=== PATIENT | female | born 1960 | race Caucasian/White ===

== ENCOUNTER → 2020-05-31 | Outpatient (CLI) | payer BC | LOC: M.WC 08:00 | PROVIDERS: ATTEND Surgery | DX: T86.828 Other complications of skin graft (allograft) (autograft) (principal); E10.628 Type 1 diabetes mellitus with other skin complications; L59.8 Other specified disorders of the skin and subcutaneous tissue related to radiation; Z85.3 Personal history of malignant neoplasm of breast; Z90.710 Acquired absence of both cervix and uterus; Z90.49 Acquired absence of other specified parts of digestive tract; Z79.82 Long term (current) use of aspirin; Y84.2 Radiological procedure and radiotherapy as the cause of abnormal reaction of the patient, or of later complication, without mention of misadventure at the time of the procedure; Y83.2 Surgical operation with anastomosis, bypass or graft as the cause of abnormal reaction of the patient, or of later complication, without mention of misadventure at the time of the procedure ==

== ENCOUNTER → 2020-06-08 | Outpatient (CLI) | payer BC | LOC: M.WC 10:00 | PROVIDERS: ATTEND Surgery | DX: T86.828 Other complications of skin graft (allograft) (autograft) (principal); T81.89XD Other complications of procedures, not elsewhere classified, subsequent encounter; E10.628 Type 1 diabetes mellitus with other skin complications; L59.8 Other specified disorders of the skin and subcutaneous tissue related to radiation; Z85.3 Personal history of malignant neoplasm of breast; Z90.710 Acquired absence of both cervix and uterus; Z90.49 Acquired absence of other specified parts of digestive tract; Z79.82 Long term (current) use of aspirin; Y83.2 Surgical operation with anastomosis, bypass or graft as the cause of abnormal reaction of the patient, or of later complication, without mention of misadventure at the time of the procedure; Y83.8 Other surgical procedures as the cause of abnormal reaction of the patient, or of later complication, without mention of misadventure at the time of the procedure; Y84.2 Radiological procedure and radiotherapy as the cause of abnormal reaction of the patient, or of later complication, without mention of misadventure at the time of the procedure ==

== ENCOUNTER → 2020-06-09 | Outpatient (CLI) | payer BC | LOC: M.WC 07:27 | PROVIDERS: ATTEND Surgery | DX: T86.828 Other complications of skin graft (allograft) (autograft) (principal); L59.9 Disorder of the skin and subcutaneous tissue related to radiation, unspecified; E10.628 Type 1 diabetes mellitus with other skin complications; E07.89 Other specified disorders of thyroid; Z85.3 Personal history of malignant neoplasm of breast; Z90.710 Acquired absence of both cervix and uterus; Z90.49 Acquired absence of other specified parts of digestive tract; Z79.4 Long term (current) use of insulin; Z79.82 Long term (current) use of aspirin; Y84.2 Radiological procedure and radiotherapy as the cause of abnormal reaction of the patient, or of later complication, without mention of misadventure at the time of the procedure; Y83.2 Surgical operation with anastomosis, bypass or graft as the cause of abnormal reaction of the patient, or of later complication, without mention of misadventure at the time of the procedure ==

== ENCOUNTER → 2020-06-10 | Outpatient (CLI) | payer BC | LOC: M.WC 07:33 | PROVIDERS: ATTEND Family Medicine | DX: L59.8 Other specified disorders of the skin and subcutaneous tissue related to radiation (principal); T86.828 Other complications of skin graft (allograft) (autograft); M87.88 Other osteonecrosis, other site; E10.628 Type 1 diabetes mellitus with other skin complications; E07.89 Other specified disorders of thyroid; Z85.3 Personal history of malignant neoplasm of breast; Z90.710 Acquired absence of both cervix and uterus; Z90.49 Acquired absence of other specified parts of digestive tract; Y83.2 Surgical operation with anastomosis, bypass or graft as the cause of abnormal reaction of the patient, or of later complication, without mention of misadventure at the time of the procedure; Y84.2 Radiological procedure and radiotherapy as the cause of abnormal reaction of the patient, or of later complication, without mention of misadventure at the time of the procedure ==

== ENCOUNTER → 2020-06-14 | Outpatient (CLI) | payer BC | LOC: M.WC 07:27 | PROVIDERS: ATTEND Surgery | DX: L59.8 Other specified disorders of the skin and subcutaneous tissue related to radiation (principal); T86.828 Other complications of skin graft (allograft) (autograft); M87.88 Other osteonecrosis, other site; E10.628 Type 1 diabetes mellitus with other skin complications; E07.89 Other specified disorders of thyroid; Z85.3 Personal history of malignant neoplasm of breast; Z90.710 Acquired absence of both cervix and uterus; Z90.49 Acquired absence of other specified parts of digestive tract; Y83.2 Surgical operation with anastomosis, bypass or graft as the cause of abnormal reaction of the patient, or of later complication, without mention of misadventure at the time of the procedure; Y84.2 Radiological procedure and radiotherapy as the cause of abnormal reaction of the patient, or of later complication, without mention of misadventure at the time of the procedure ==

== ENCOUNTER → 2020-06-15 | Outpatient (CLI) | payer BC | LOC: M.WC 07:33 | PROVIDERS: ATTEND Emergency Medicine Undersea and Hyperbaric Medicine | DX: L59.8 Other specified disorders of the skin and subcutaneous tissue related to radiation (principal); E10.628 Type 1 diabetes mellitus with other skin complications; T86.828 Other complications of skin graft (allograft) (autograft); Z85.3 Personal history of malignant neoplasm of breast; Z90.11 Acquired absence of right breast and nipple; Y84.2 Radiological procedure and radiotherapy as the cause of abnormal reaction of the patient, or of later complication, without mention of misadventure at the time of the procedure; Y83.2 Surgical operation with anastomosis, bypass or graft as the cause of abnormal reaction of the patient, or of later complication, without mention of misadventure at the time of the procedure ==

== ENCOUNTER → 2020-06-16 | Outpatient (CLI) | payer BC | LOC: M.WC 07:42 | PROVIDERS: ATTEND Surgery | DX: L59.8 Other specified disorders of the skin and subcutaneous tissue related to radiation (principal); T86.828 Other complications of skin graft (allograft) (autograft); M87.88 Other osteonecrosis, other site; E10.628 Type 1 diabetes mellitus with other skin complications; E07.89 Other specified disorders of thyroid; Z85.3 Personal history of malignant neoplasm of breast; Z90.710 Acquired absence of both cervix and uterus; Z90.49 Acquired absence of other specified parts of digestive tract; Y83.2 Surgical operation with anastomosis, bypass or graft as the cause of abnormal reaction of the patient, or of later complication, without mention of misadventure at the time of the procedure; Y84.2 Radiological procedure and radiotherapy as the cause of abnormal reaction of the patient, or of later complication, without mention of misadventure at the time of the procedure ==

== ENCOUNTER → 2020-06-17 | Outpatient (CLI) | payer BC | LOC: M.WC 07:28 | PROVIDERS: ATTEND Family Medicine | DX: L59.8 Other specified disorders of the skin and subcutaneous tissue related to radiation (principal); T86.828 Other complications of skin graft (allograft) (autograft); M87.88 Other osteonecrosis, other site; E10.628 Type 1 diabetes mellitus with other skin complications; E07.89 Other specified disorders of thyroid; Z85.3 Personal history of malignant neoplasm of breast; Z90.710 Acquired absence of both cervix and uterus; Z90.49 Acquired absence of other specified parts of digestive tract; Y83.2 Surgical operation with anastomosis, bypass or graft as the cause of abnormal reaction of the patient, or of later complication, without mention of misadventure at the time of the procedure; Y84.2 Radiological procedure and radiotherapy as the cause of abnormal reaction of the patient, or of later complication, without mention of misadventure at the time of the procedure ==

== ENCOUNTER → 2020-06-18 | Outpatient (CLI) | payer BC | LOC: M.WC 07:35 | PROVIDERS: ATTEND Family Medicine | DX: L59.8 Other specified disorders of the skin and subcutaneous tissue related to radiation (principal); T86.828 Other complications of skin graft (allograft) (autograft); M87.88 Other osteonecrosis, other site; E10.628 Type 1 diabetes mellitus with other skin complications; E07.89 Other specified disorders of thyroid; Z85.3 Personal history of malignant neoplasm of breast; Z90.710 Acquired absence of both cervix and uterus; Z90.49 Acquired absence of other specified parts of digestive tract; Y83.2 Surgical operation with anastomosis, bypass or graft as the cause of abnormal reaction of the patient, or of later complication, without mention of misadventure at the time of the procedure; Y84.2 Radiological procedure and radiotherapy as the cause of abnormal reaction of the patient, or of later complication, without mention of misadventure at the time of the procedure ==

== ENCOUNTER → 2020-06-21 | Outpatient (CLI) | payer BC | LOC: M.WC 07:34 | PROVIDERS: ATTEND Surgery | DX: L59.8 Other specified disorders of the skin and subcutaneous tissue related to radiation (principal); E10.628 Type 1 diabetes mellitus with other skin complications; T86.828 Other complications of skin graft (allograft) (autograft); T81.89XD Other complications of procedures, not elsewhere classified, subsequent encounter; Z85.3 Personal history of malignant neoplasm of breast; Y84.2 Radiological procedure and radiotherapy as the cause of abnormal reaction of the patient, or of later complication, without mention of misadventure at the time of the procedure; Y83.2 Surgical operation with anastomosis, bypass or graft as the cause of abnormal reaction of the patient, or of later complication, without mention of misadventure at the time of the procedure; Y83.8 Other surgical procedures as the cause of abnormal reaction of the patient, or of later complication, without mention of misadventure at the time of the procedure ==

== ENCOUNTER → 2020-06-22 | Outpatient (CLI) | payer BC | LOC: M.WC 07:30 | PROVIDERS: ATTEND Emergency Medicine Undersea and Hyperbaric Medicine | DX: L59.8 Other specified disorders of the skin and subcutaneous tissue related to radiation (principal); T86.828 Other complications of skin graft (allograft) (autograft); M87.88 Other osteonecrosis, other site; E10.628 Type 1 diabetes mellitus with other skin complications; E07.89 Other specified disorders of thyroid; Z85.3 Personal history of malignant neoplasm of breast; Z90.710 Acquired absence of both cervix and uterus; Z90.49 Acquired absence of other specified parts of digestive tract; Y83.2 Surgical operation with anastomosis, bypass or graft as the cause of abnormal reaction of the patient, or of later complication, without mention of misadventure at the time of the procedure; Y84.2 Radiological procedure and radiotherapy as the cause of abnormal reaction of the patient, or of later complication, without mention of misadventure at the time of the procedure ==

== ENCOUNTER → 2020-06-23 | Outpatient (CLI) | payer BC | LOC: M.WC 07:32 | PROVIDERS: ATTEND Surgery | DX: L59.8 Other specified disorders of the skin and subcutaneous tissue related to radiation (principal); T86.828 Other complications of skin graft (allograft) (autograft); M87.88 Other osteonecrosis, other site; E10.628 Type 1 diabetes mellitus with other skin complications; E07.89 Other specified disorders of thyroid; Z85.3 Personal history of malignant neoplasm of breast; Z90.710 Acquired absence of both cervix and uterus; Z90.49 Acquired absence of other specified parts of digestive tract; Y83.2 Surgical operation with anastomosis, bypass or graft as the cause of abnormal reaction of the patient, or of later complication, without mention of misadventure at the time of the procedure; Y84.2 Radiological procedure and radiotherapy as the cause of abnormal reaction of the patient, or of later complication, without mention of misadventure at the time of the procedure ==

== ENCOUNTER → 2020-06-24 | Outpatient (CLI) | payer BC | LOC: M.WC 07:31 | PROVIDERS: ATTEND Family Medicine | DX: L59.8 Other specified disorders of the skin and subcutaneous tissue related to radiation (principal); T86.828 Other complications of skin graft (allograft) (autograft); M87.88 Other osteonecrosis, other site; E10.628 Type 1 diabetes mellitus with other skin complications; E07.89 Other specified disorders of thyroid; Z85.3 Personal history of malignant neoplasm of breast; Z90.710 Acquired absence of both cervix and uterus; Z90.49 Acquired absence of other specified parts of digestive tract; Y83.2 Surgical operation with anastomosis, bypass or graft as the cause of abnormal reaction of the patient, or of later complication, without mention of misadventure at the time of the procedure; Y84.2 Radiological procedure and radiotherapy as the cause of abnormal reaction of the patient, or of later complication, without mention of misadventure at the time of the procedure ==

== ENCOUNTER → 2020-06-25 | Outpatient (CLI) | payer BC | LOC: M.WC 07:32 | PROVIDERS: ATTEND Family Medicine | DX: L59.8 Other specified disorders of the skin and subcutaneous tissue related to radiation (principal); T86.828 Other complications of skin graft (allograft) (autograft); M87.88 Other osteonecrosis, other site; E10.628 Type 1 diabetes mellitus with other skin complications; E07.89 Other specified disorders of thyroid; Z85.3 Personal history of malignant neoplasm of breast; Z90.710 Acquired absence of both cervix and uterus; Z90.49 Acquired absence of other specified parts of digestive tract; Y83.2 Surgical operation with anastomosis, bypass or graft as the cause of abnormal reaction of the patient, or of later complication, without mention of misadventure at the time of the procedure; Y84.2 Radiological procedure and radiotherapy as the cause of abnormal reaction of the patient, or of later complication, without mention of misadventure at the time of the procedure ==

== ENCOUNTER → 2020-06-28 | Outpatient (CLI) | payer BC | LOC: M.WC 08:00 | PROVIDERS: ATTEND Surgery | DX: L59.8 Other specified disorders of the skin and subcutaneous tissue related to radiation (principal); T86.828 Other complications of skin graft (allograft) (autograft); M87.88 Other osteonecrosis, other site; E10.628 Type 1 diabetes mellitus with other skin complications; E07.89 Other specified disorders of thyroid; Z85.3 Personal history of malignant neoplasm of breast; Z90.710 Acquired absence of both cervix and uterus; Z90.49 Acquired absence of other specified parts of digestive tract; Y83.2 Surgical operation with anastomosis, bypass or graft as the cause of abnormal reaction of the patient, or of later complication, without mention of misadventure at the time of the procedure; Y84.2 Radiological procedure and radiotherapy as the cause of abnormal reaction of the patient, or of later complication, without mention of misadventure at the time of the procedure ==

== ENCOUNTER → 2020-06-29 | Outpatient (CLI) | payer BC | LOC: M.WC 07:39 | PROVIDERS: ATTEND Emergency Medicine Undersea and Hyperbaric Medicine | DX: L59.8 Other specified disorders of the skin and subcutaneous tissue related to radiation (principal); T86.828 Other complications of skin graft (allograft) (autograft); M87.88 Other osteonecrosis, other site; E10.628 Type 1 diabetes mellitus with other skin complications; E07.89 Other specified disorders of thyroid; Z85.3 Personal history of malignant neoplasm of breast; Z90.710 Acquired absence of both cervix and uterus; Z90.49 Acquired absence of other specified parts of digestive tract; Y83.2 Surgical operation with anastomosis, bypass or graft as the cause of abnormal reaction of the patient, or of later complication, without mention of misadventure at the time of the procedure; Y84.2 Radiological procedure and radiotherapy as the cause of abnormal reaction of the patient, or of later complication, without mention of misadventure at the time of the procedure ==

== ENCOUNTER → 2020-06-30 | Outpatient (CLI) | payer BC | LOC: M.WC 07:31 | PROVIDERS: ATTEND Emergency Medicine Undersea and Hyperbaric Medicine | DX: L59.8 Other specified disorders of the skin and subcutaneous tissue related to radiation (principal); T86.828 Other complications of skin graft (allograft) (autograft); M87.88 Other osteonecrosis, other site; E10.628 Type 1 diabetes mellitus with other skin complications; E07.89 Other specified disorders of thyroid; Z85.3 Personal history of malignant neoplasm of breast; Z90.710 Acquired absence of both cervix and uterus; Z90.49 Acquired absence of other specified parts of digestive tract; Y83.2 Surgical operation with anastomosis, bypass or graft as the cause of abnormal reaction of the patient, or of later complication, without mention of misadventure at the time of the procedure ==

== ENCOUNTER → 2020-07-01 | Outpatient (CLI) | payer BC | LOC: M.WC 07:17 | PROVIDERS: ATTEND Family Medicine | DX: L59.8 Other specified disorders of the skin and subcutaneous tissue related to radiation (principal); T86.828 Other complications of skin graft (allograft) (autograft); M87.88 Other osteonecrosis, other site; E10.628 Type 1 diabetes mellitus with other skin complications; E07.89 Other specified disorders of thyroid; Z85.3 Personal history of malignant neoplasm of breast; Z90.710 Acquired absence of both cervix and uterus; Z90.49 Acquired absence of other specified parts of digestive tract; Y83.2 Surgical operation with anastomosis, bypass or graft as the cause of abnormal reaction of the patient, or of later complication, without mention of misadventure at the time of the procedure; Y84.2 Radiological procedure and radiotherapy as the cause of abnormal reaction of the patient, or of later complication, without mention of misadventure at the time of the procedure ==

== ENCOUNTER → 2020-07-02 | Outpatient (CLI) | payer BC | LOC: M.WC 07:33 | PROVIDERS: ATTEND Family Medicine | DX: L59.8 Other specified disorders of the skin and subcutaneous tissue related to radiation (principal); E10.628 Type 1 diabetes mellitus with other skin complications; T86.828 Other complications of skin graft (allograft) (autograft); Z85.3 Personal history of malignant neoplasm of breast; Y84.2 Radiological procedure and radiotherapy as the cause of abnormal reaction of the patient, or of later complication, without mention of misadventure at the time of the procedure; Y83.2 Surgical operation with anastomosis, bypass or graft as the cause of abnormal reaction of the patient, or of later complication, without mention of misadventure at the time of the procedure ==

== ENCOUNTER → 2020-07-05 | Outpatient (CLI) | payer BC | LOC: M.WC 07:22 | PROVIDERS: ATTEND Surgery | DX: L59.8 Other specified disorders of the skin and subcutaneous tissue related to radiation (principal); E10.628 Type 1 diabetes mellitus with other skin complications; T86.828 Other complications of skin graft (allograft) (autograft); E07.89 Other specified disorders of thyroid; M87.88 Other osteonecrosis, other site; Z85.3 Personal history of malignant neoplasm of breast; Y84.2 Radiological procedure and radiotherapy as the cause of abnormal reaction of the patient, or of later complication, without mention of misadventure at the time of the procedure; Y83.2 Surgical operation with anastomosis, bypass or graft as the cause of abnormal reaction of the patient, or of later complication, without mention of misadventure at the time of the procedure ==

== ENCOUNTER → 2020-07-06 | Outpatient (CLI) | payer BC | LOC: M.WC 07:33 | PROVIDERS: ATTEND Emergency Medicine Undersea and Hyperbaric Medicine | DX: L59.8 Other specified disorders of the skin and subcutaneous tissue related to radiation (principal); E10.628 Type 1 diabetes mellitus with other skin complications; T86.828 Other complications of skin graft (allograft) (autograft); E07.89 Other specified disorders of thyroid; M87.88 Other osteonecrosis, other site; Z85.3 Personal history of malignant neoplasm of breast; Y83.2 Surgical operation with anastomosis, bypass or graft as the cause of abnormal reaction of the patient, or of later complication, without mention of misadventure at the time of the procedure; Y84.2 Radiological procedure and radiotherapy as the cause of abnormal reaction of the patient, or of later complication, without mention of misadventure at the time of the procedure ==

== ENCOUNTER → 2020-07-07 | Outpatient (CLI) | payer BC | LOC: M.WC 07:35 | PROVIDERS: ATTEND Surgery | DX: L59.8 Other specified disorders of the skin and subcutaneous tissue related to radiation (principal); E10.628 Type 1 diabetes mellitus with other skin complications; T86.828 Other complications of skin graft (allograft) (autograft); E07.89 Other specified disorders of thyroid; M87.88 Other osteonecrosis, other site; Z85.3 Personal history of malignant neoplasm of breast; Y83.2 Surgical operation with anastomosis, bypass or graft as the cause of abnormal reaction of the patient, or of later complication, without mention of misadventure at the time of the procedure; Y84.2 Radiological procedure and radiotherapy as the cause of abnormal reaction of the patient, or of later complication, without mention of misadventure at the time of the procedure ==

== ENCOUNTER → 2020-07-08 | Outpatient (CLI) | payer BC | LOC: M.WC 07:45 | PROVIDERS: ATTEND Family Medicine | DX: L59.8 Other specified disorders of the skin and subcutaneous tissue related to radiation (principal); E10.628 Type 1 diabetes mellitus with other skin complications; T86.828 Other complications of skin graft (allograft) (autograft); E07.89 Other specified disorders of thyroid; M87.88 Other osteonecrosis, other site; Z85.3 Personal history of malignant neoplasm of breast; Y83.2 Surgical operation with anastomosis, bypass or graft as the cause of abnormal reaction of the patient, or of later complication, without mention of misadventure at the time of the procedure; Y84.2 Radiological procedure and radiotherapy as the cause of abnormal reaction of the patient, or of later complication, without mention of misadventure at the time of the procedure ==

== ENCOUNTER → 2020-07-12 | Outpatient (CLI) | payer BC | LOC: M.WC 07:32 | PROVIDERS: ATTEND Surgery | DX: L59.8 Other specified disorders of the skin and subcutaneous tissue related to radiation (principal); E10.628 Type 1 diabetes mellitus with other skin complications; T86.828 Other complications of skin graft (allograft) (autograft); E07.89 Other specified disorders of thyroid; M87.88 Other osteonecrosis, other site; Z85.3 Personal history of malignant neoplasm of breast; Y83.2 Surgical operation with anastomosis, bypass or graft as the cause of abnormal reaction of the patient, or of later complication, without mention of misadventure at the time of the procedure; Y84.2 Radiological procedure and radiotherapy as the cause of abnormal reaction of the patient, or of later complication, without mention of misadventure at the time of the procedure ==

== ENCOUNTER → 2020-07-13 | Outpatient (CLI) | payer BC | LOC: M.WC 07:32 | PROVIDERS: ATTEND Emergency Medicine Undersea and Hyperbaric Medicine | DX: L59.8 Other specified disorders of the skin and subcutaneous tissue related to radiation (principal); E10.628 Type 1 diabetes mellitus with other skin complications; T86.828 Other complications of skin graft (allograft) (autograft); E07.89 Other specified disorders of thyroid; M87.88 Other osteonecrosis, other site; Z85.3 Personal history of malignant neoplasm of breast; Y83.2 Surgical operation with anastomosis, bypass or graft as the cause of abnormal reaction of the patient, or of later complication, without mention of misadventure at the time of the procedure; Y84.2 Radiological procedure and radiotherapy as the cause of abnormal reaction of the patient, or of later complication, without mention of misadventure at the time of the procedure ==

== ENCOUNTER → 2020-07-14 | Outpatient (CLI) | payer BC | LOC: M.WC 07:36 | PROVIDERS: ATTEND Surgery | DX: L59.8 Other specified disorders of the skin and subcutaneous tissue related to radiation (principal); M87.88 Other osteonecrosis, other site; E10.628 Type 1 diabetes mellitus with other skin complications; T86.828 Other complications of skin graft (allograft) (autograft); Z85.3 Personal history of malignant neoplasm of breast; Z90.11 Acquired absence of right breast and nipple; Y84.2 Radiological procedure and radiotherapy as the cause of abnormal reaction of the patient, or of later complication, without mention of misadventure at the time of the procedure; Y83.2 Surgical operation with anastomosis, bypass or graft as the cause of abnormal reaction of the patient, or of later complication, without mention of misadventure at the time of the procedure ==

== ENCOUNTER → 2020-07-15 | Outpatient (CLI) | payer BC | LOC: M.WC 07:25 | PROVIDERS: ATTEND Family Medicine | DX: L59.8 Other specified disorders of the skin and subcutaneous tissue related to radiation (principal); M87.88 Other osteonecrosis, other site; E10.628 Type 1 diabetes mellitus with other skin complications; T86.828 Other complications of skin graft (allograft) (autograft); Z85.3 Personal history of malignant neoplasm of breast; Z90.11 Acquired absence of right breast and nipple; Y84.2 Radiological procedure and radiotherapy as the cause of abnormal reaction of the patient, or of later complication, without mention of misadventure at the time of the procedure; Y83.2 Surgical operation with anastomosis, bypass or graft as the cause of abnormal reaction of the patient, or of later complication, without mention of misadventure at the time of the procedure ==

== ENCOUNTER → 2020-07-16 | Outpatient (CLI) | payer BC | LOC: M.WC 07:33 | PROVIDERS: ATTEND Family Medicine | DX: L59.8 Other specified disorders of the skin and subcutaneous tissue related to radiation (principal); M87.88 Other osteonecrosis, other site; T86.828 Other complications of skin graft (allograft) (autograft); E10.628 Type 1 diabetes mellitus with other skin complications; E07.89 Other specified disorders of thyroid; Z85.3 Personal history of malignant neoplasm of breast; Z90.11 Acquired absence of right breast and nipple; Y83.2 Surgical operation with anastomosis, bypass or graft as the cause of abnormal reaction of the patient, or of later complication, without mention of misadventure at the time of the procedure; Y84.2 Radiological procedure and radiotherapy as the cause of abnormal reaction of the patient, or of later complication, without mention of misadventure at the time of the procedure ==

== ENCOUNTER → 2020-07-19 | Outpatient (CLI) | payer BC | LOC: M.WC 07:36 | PROVIDERS: ATTEND Internal Medicine | DX: L59.8 Other specified disorders of the skin and subcutaneous tissue related to radiation (principal); M87.88 Other osteonecrosis, other site; T86.828 Other complications of skin graft (allograft) (autograft); E10.628 Type 1 diabetes mellitus with other skin complications; E07.89 Other specified disorders of thyroid; Z85.3 Personal history of malignant neoplasm of breast; Z90.11 Acquired absence of right breast and nipple; Y83.2 Surgical operation with anastomosis, bypass or graft as the cause of abnormal reaction of the patient, or of later complication, without mention of misadventure at the time of the procedure; Y84.2 Radiological procedure and radiotherapy as the cause of abnormal reaction of the patient, or of later complication, without mention of misadventure at the time of the procedure ==

== ENCOUNTER → 2020-07-20 | Outpatient (CLI) | payer BC | LOC: M.WC 07:49 | PROVIDERS: ATTEND Emergency Medicine Undersea and Hyperbaric Medicine | DX: L59.8 Other specified disorders of the skin and subcutaneous tissue related to radiation (principal); M87.88 Other osteonecrosis, other site; T86.828 Other complications of skin graft (allograft) (autograft); E10.628 Type 1 diabetes mellitus with other skin complications; E07.89 Other specified disorders of thyroid; Z85.3 Personal history of malignant neoplasm of breast; Z90.11 Acquired absence of right breast and nipple; Y83.2 Surgical operation with anastomosis, bypass or graft as the cause of abnormal reaction of the patient, or of later complication, without mention of misadventure at the time of the procedure; Y84.2 Radiological procedure and radiotherapy as the cause of abnormal reaction of the patient, or of later complication, without mention of misadventure at the time of the procedure ==

== ENCOUNTER → 2020-07-21 | Outpatient (CLI) | payer BC | LOC: M.WC 07:38 | PROVIDERS: ATTEND Surgery | DX: L59.8 Other specified disorders of the skin and subcutaneous tissue related to radiation (principal); M87.88 Other osteonecrosis, other site; T86.828 Other complications of skin graft (allograft) (autograft); E10.628 Type 1 diabetes mellitus with other skin complications; E07.89 Other specified disorders of thyroid; Z85.3 Personal history of malignant neoplasm of breast; Z90.11 Acquired absence of right breast and nipple; Y83.2 Surgical operation with anastomosis, bypass or graft as the cause of abnormal reaction of the patient, or of later complication, without mention of misadventure at the time of the procedure; Y84.2 Radiological procedure and radiotherapy as the cause of abnormal reaction of the patient, or of later complication, without mention of misadventure at the time of the procedure ==

== ENCOUNTER → 2020-07-23 | Outpatient (CLI) | payer BC | LOC: M.WC 07:20 | PROVIDERS: ATTEND Family Medicine | DX: L59.8 Other specified disorders of the skin and subcutaneous tissue related to radiation (principal); M87.88 Other osteonecrosis, other site; E10.628 Type 1 diabetes mellitus with other skin complications; T86.828 Other complications of skin graft (allograft) (autograft); Z85.3 Personal history of malignant neoplasm of breast; Z90.11 Acquired absence of right breast and nipple; Y83.2 Surgical operation with anastomosis, bypass or graft as the cause of abnormal reaction of the patient, or of later complication, without mention of misadventure at the time of the procedure; Y84.2 Radiological procedure and radiotherapy as the cause of abnormal reaction of the patient, or of later complication, without mention of misadventure at the time of the procedure ==

== ENCOUNTER → 2020-07-26 | Outpatient (CLI) | payer BC | LOC: M.WC 07:21 | PROVIDERS: ATTEND Surgery | DX: L59.8 Other specified disorders of the skin and subcutaneous tissue related to radiation (principal); E10.628 Type 1 diabetes mellitus with other skin complications; T86.828 Other complications of skin graft (allograft) (autograft); T81.89XD Other complications of procedures, not elsewhere classified, subsequent encounter; E07.89 Other specified disorders of thyroid; M87.88 Other osteonecrosis, other site; Z85.3 Personal history of malignant neoplasm of breast; Y83.8 Other surgical procedures as the cause of abnormal reaction of the patient, or of later complication, without mention of misadventure at the time of the procedure; Y83.2 Surgical operation with anastomosis, bypass or graft as the cause of abnormal reaction of the patient, or of later complication, without mention of misadventure at the time of the procedure; Y84.2 Radiological procedure and radiotherapy as the cause of abnormal reaction of the patient, or of later complication, without mention of misadventure at the time of the procedure ==

== ENCOUNTER → 2020-08-02 | Outpatient (CLI) | payer BC | LOC: M.WC 09:59 | PROVIDERS: ATTEND Surgery | DX: T86.828 Other complications of skin graft (allograft) (autograft) (principal); T81.89XD Other complications of procedures, not elsewhere classified, subsequent encounter; L59.8 Other specified disorders of the skin and subcutaneous tissue related to radiation; E10.628 Type 1 diabetes mellitus with other skin complications; E07.89 Other specified disorders of thyroid; M87.88 Other osteonecrosis, other site; Z85.3 Personal history of malignant neoplasm of breast; Y83.8 Other surgical procedures as the cause of abnormal reaction of the patient, or of later complication, without mention of misadventure at the time of the procedure; Y83.2 Surgical operation with anastomosis, bypass or graft as the cause of abnormal reaction of the patient, or of later complication, without mention of misadventure at the time of the procedure; Y84.2 Radiological procedure and radiotherapy as the cause of abnormal reaction of the patient, or of later complication, without mention of misadventure at the time of the procedure ==

== ENCOUNTER → 2020-08-09 | Outpatient (CLI) | payer BC | LOC: M.WC 09:12 | PROVIDERS: ATTEND Surgery | DX: T86.828 Other complications of skin graft (allograft) (autograft) (principal); T81.89XD Other complications of procedures, not elsewhere classified, subsequent encounter; L59.8 Other specified disorders of the skin and subcutaneous tissue related to radiation; E10.628 Type 1 diabetes mellitus with other skin complications; E07.89 Other specified disorders of thyroid; M87.88 Other osteonecrosis, other site; Z85.3 Personal history of malignant neoplasm of breast; Y83.8 Other surgical procedures as the cause of abnormal reaction of the patient, or of later complication, without mention of misadventure at the time of the procedure; Y84.2 Radiological procedure and radiotherapy as the cause of abnormal reaction of the patient, or of later complication, without mention of misadventure at the time of the procedure; Y83.2 Surgical operation with anastomosis, bypass or graft as the cause of abnormal reaction of the patient, or of later complication, without mention of misadventure at the time of the procedure ==

== ENCOUNTER → 2020-08-10 | Outpatient (CLI) | payer BC | LOC: M.WC 07:37 | PROVIDERS: ATTEND Emergency Medicine Undersea and Hyperbaric Medicine | DX: L59.8 Other specified disorders of the skin and subcutaneous tissue related to radiation (principal); T86.828 Other complications of skin graft (allograft) (autograft); M87.88 Other osteonecrosis, other site; E10.628 Type 1 diabetes mellitus with other skin complications; E07.89 Other specified disorders of thyroid; Z85.3 Personal history of malignant neoplasm of breast; Y83.2 Surgical operation with anastomosis, bypass or graft as the cause of abnormal reaction of the patient, or of later complication, without mention of misadventure at the time of the procedure; Y84.2 Radiological procedure and radiotherapy as the cause of abnormal reaction of the patient, or of later complication, without mention of misadventure at the time of the procedure ==

== ENCOUNTER → 2020-08-11 | Outpatient (CLI) | payer BC | LOC: M.WC 07:37 | PROVIDERS: ATTEND Surgery | DX: T86.828 Other complications of skin graft (allograft) (autograft) (principal); L59.8 Other specified disorders of the skin and subcutaneous tissue related to radiation; E10.628 Type 1 diabetes mellitus with other skin complications; E07.89 Other specified disorders of thyroid; M87.88 Other osteonecrosis, other site; Z85.3 Personal history of malignant neoplasm of breast; Y84.2 Radiological procedure and radiotherapy as the cause of abnormal reaction of the patient, or of later complication, without mention of misadventure at the time of the procedure; Y83.2 Surgical operation with anastomosis, bypass or graft as the cause of abnormal reaction of the patient, or of later complication, without mention of misadventure at the time of the procedure ==

== ENCOUNTER → 2020-08-12 | Outpatient (CLI) | payer BC | LOC: M.WC 07:25 | PROVIDERS: ATTEND Family Medicine | DX: L59.8 Other specified disorders of the skin and subcutaneous tissue related to radiation (principal); T86.828 Other complications of skin graft (allograft) (autograft); E10.628 Type 1 diabetes mellitus with other skin complications; E07.89 Other specified disorders of thyroid; M87.88 Other osteonecrosis, other site; Z85.3 Personal history of malignant neoplasm of breast; Y83.2 Surgical operation with anastomosis, bypass or graft as the cause of abnormal reaction of the patient, or of later complication, without mention of misadventure at the time of the procedure; Y84.2 Radiological procedure and radiotherapy as the cause of abnormal reaction of the patient, or of later complication, without mention of misadventure at the time of the procedure ==

== ENCOUNTER → 2020-08-13 | Outpatient (CLI) | payer BC | LOC: M.WC 07:39 | PROVIDERS: ATTEND Family Medicine | DX: L59.8 Other specified disorders of the skin and subcutaneous tissue related to radiation (principal); M87.88 Other osteonecrosis, other site; E10.628 Type 1 diabetes mellitus with other skin complications; T86.828 Other complications of skin graft (allograft) (autograft); Z85.3 Personal history of malignant neoplasm of breast; Z90.11 Acquired absence of right breast and nipple; Y83.2 Surgical operation with anastomosis, bypass or graft as the cause of abnormal reaction of the patient, or of later complication, without mention of misadventure at the time of the procedure; Y84.2 Radiological procedure and radiotherapy as the cause of abnormal reaction of the patient, or of later complication, without mention of misadventure at the time of the procedure ==

== ENCOUNTER → 2020-08-16 | Outpatient (CLI) | payer BC | LOC: M.WC 07:34 | PROVIDERS: ATTEND Surgery | DX: L59.8 Other specified disorders of the skin and subcutaneous tissue related to radiation (principal); M87.88 Other osteonecrosis, other site; E10.628 Type 1 diabetes mellitus with other skin complications; T86.828 Other complications of skin graft (allograft) (autograft); Z85.3 Personal history of malignant neoplasm of breast; Z90.11 Acquired absence of right breast and nipple; Y83.2 Surgical operation with anastomosis, bypass or graft as the cause of abnormal reaction of the patient, or of later complication, without mention of misadventure at the time of the procedure; Y84.2 Radiological procedure and radiotherapy as the cause of abnormal reaction of the patient, or of later complication, without mention of misadventure at the time of the procedure ==

== ENCOUNTER → 2020-08-17 | Outpatient (CLI) | payer BC | LOC: M.WC 07:36 | PROVIDERS: ATTEND Emergency Medicine Undersea and Hyperbaric Medicine | DX: L59.8 Other specified disorders of the skin and subcutaneous tissue related to radiation (principal); M87.88 Other osteonecrosis, other site; E10.628 Type 1 diabetes mellitus with other skin complications; T86.828 Other complications of skin graft (allograft) (autograft); Z85.3 Personal history of malignant neoplasm of breast; Z90.11 Acquired absence of right breast and nipple; Y83.2 Surgical operation with anastomosis, bypass or graft as the cause of abnormal reaction of the patient, or of later complication, without mention of misadventure at the time of the procedure; Y84.2 Radiological procedure and radiotherapy as the cause of abnormal reaction of the patient, or of later complication, without mention of misadventure at the time of the procedure ==

== ENCOUNTER → 2020-08-18 | Outpatient (CLI) | payer BC | LOC: M.WC 07:54 | PROVIDERS: ATTEND Surgery | DX: L59.8 Other specified disorders of the skin and subcutaneous tissue related to radiation (principal); M87.88 Other osteonecrosis, other site; E10.628 Type 1 diabetes mellitus with other skin complications; T86.828 Other complications of skin graft (allograft) (autograft); E07.89 Other specified disorders of thyroid; Z79.4 Long term (current) use of insulin; Z79.82 Long term (current) use of aspirin; Z90.11 Acquired absence of right breast and nipple; Z85.3 Personal history of malignant neoplasm of breast; Y84.2 Radiological procedure and radiotherapy as the cause of abnormal reaction of the patient, or of later complication, without mention of misadventure at the time of the procedure; Y83.2 Surgical operation with anastomosis, bypass or graft as the cause of abnormal reaction of the patient, or of later complication, without mention of misadventure at the time of the procedure ==

== ENCOUNTER → 2020-08-19 | Outpatient (CLI) | payer BC | LOC: M.WC 07:35 | PROVIDERS: ATTEND Family Medicine | DX: L59.8 Other specified disorders of the skin and subcutaneous tissue related to radiation (principal); M87.88 Other osteonecrosis, other site; E10.628 Type 1 diabetes mellitus with other skin complications; T86.828 Other complications of skin graft (allograft) (autograft); E07.89 Other specified disorders of thyroid; Z79.4 Long term (current) use of insulin; Z79.82 Long term (current) use of aspirin; Z90.11 Acquired absence of right breast and nipple; Z85.3 Personal history of malignant neoplasm of breast; Y84.2 Radiological procedure and radiotherapy as the cause of abnormal reaction of the patient, or of later complication, without mention of misadventure at the time of the procedure; Y83.2 Surgical operation with anastomosis, bypass or graft as the cause of abnormal reaction of the patient, or of later complication, without mention of misadventure at the time of the procedure ==

== ENCOUNTER → 2020-08-20 | Outpatient (CLI) | payer BC | LOC: M.WC 07:35 | PROVIDERS: ATTEND Family Medicine | DX: L59.8 Other specified disorders of the skin and subcutaneous tissue related to radiation (principal); M87.88 Other osteonecrosis, other site; E10.628 Type 1 diabetes mellitus with other skin complications; T86.828 Other complications of skin graft (allograft) (autograft); Z90.11 Acquired absence of right breast and nipple; Y83.2 Surgical operation with anastomosis, bypass or graft as the cause of abnormal reaction of the patient, or of later complication, without mention of misadventure at the time of the procedure; Y84.2 Radiological procedure and radiotherapy as the cause of abnormal reaction of the patient, or of later complication, without mention of misadventure at the time of the procedure ==

== ENCOUNTER → 2020-08-23 | Outpatient (CLI) | payer BC | LOC: M.WC 07:41 | PROVIDERS: ATTEND Surgery | DX: L59.8 Other specified disorders of the skin and subcutaneous tissue related to radiation (principal); T86.828 Other complications of skin graft (allograft) (autograft); M87.88 Other osteonecrosis, other site; E10.628 Type 1 diabetes mellitus with other skin complications; Z90.11 Acquired absence of right breast and nipple; Y83.2 Surgical operation with anastomosis, bypass or graft as the cause of abnormal reaction of the patient, or of later complication, without mention of misadventure at the time of the procedure; Y84.2 Radiological procedure and radiotherapy as the cause of abnormal reaction of the patient, or of later complication, without mention of misadventure at the time of the procedure ==

== ENCOUNTER → 2020-08-24 | Outpatient (CLI) | payer BC | LOC: M.WC 07:48 | PROVIDERS: ATTEND Emergency Medicine Undersea and Hyperbaric Medicine | DX: L59.8 Other specified disorders of the skin and subcutaneous tissue related to radiation (principal); M87.88 Other osteonecrosis, other site; E10.628 Type 1 diabetes mellitus with other skin complications; T86.828 Other complications of skin graft (allograft) (autograft); Z90.11 Acquired absence of right breast and nipple; Y83.2 Surgical operation with anastomosis, bypass or graft as the cause of abnormal reaction of the patient, or of later complication, without mention of misadventure at the time of the procedure; Y84.2 Radiological procedure and radiotherapy as the cause of abnormal reaction of the patient, or of later complication, without mention of misadventure at the time of the procedure ==

== ENCOUNTER → 2020-08-25 | Outpatient (CLI) | payer BC | LOC: M.WC 07:45 | PROVIDERS: ATTEND Surgery | DX: L59.8 Other specified disorders of the skin and subcutaneous tissue related to radiation (principal); M87.88 Other osteonecrosis, other site; E10.628 Type 1 diabetes mellitus with other skin complications; T86.828 Other complications of skin graft (allograft) (autograft); E07.89 Other specified disorders of thyroid; Z90.11 Acquired absence of right breast and nipple; Z85.3 Personal history of malignant neoplasm of breast; Y83.2 Surgical operation with anastomosis, bypass or graft as the cause of abnormal reaction of the patient, or of later complication, without mention of misadventure at the time of the procedure; Y84.2 Radiological procedure and radiotherapy as the cause of abnormal reaction of the patient, or of later complication, without mention of misadventure at the time of the procedure ==

== ENCOUNTER → 2020-08-26 | Outpatient (CLI) | payer BC | LOC: M.WC 07:50 | PROVIDERS: ATTEND Family Medicine | DX: L59.8 Other specified disorders of the skin and subcutaneous tissue related to radiation (principal); E10.628 Type 1 diabetes mellitus with other skin complications; M87.88 Other osteonecrosis, other site; T86.828 Other complications of skin graft (allograft) (autograft); Z85.3 Personal history of malignant neoplasm of breast; Z90.11 Acquired absence of right breast and nipple; Y83.2 Surgical operation with anastomosis, bypass or graft as the cause of abnormal reaction of the patient, or of later complication, without mention of misadventure at the time of the procedure; Y84.2 Radiological procedure and radiotherapy as the cause of abnormal reaction of the patient, or of later complication, without mention of misadventure at the time of the procedure ==

== ENCOUNTER → 2020-08-27 | Outpatient (CLI) | payer BC | LOC: M.WC 07:40 | PROVIDERS: ATTEND Family Medicine | DX: L59.8 Other specified disorders of the skin and subcutaneous tissue related to radiation (principal); E10.628 Type 1 diabetes mellitus with other skin complications; T86.828 Other complications of skin graft (allograft) (autograft); M87.88 Other osteonecrosis, other site; Z90.11 Acquired absence of right breast and nipple; Y84.2 Radiological procedure and radiotherapy as the cause of abnormal reaction of the patient, or of later complication, without mention of misadventure at the time of the procedure; Y83.2 Surgical operation with anastomosis, bypass or graft as the cause of abnormal reaction of the patient, or of later complication, without mention of misadventure at the time of the procedure ==

== ENCOUNTER → 2020-08-30 | Outpatient (CLI) | payer BC | LOC: M.WC 07:48 | PROVIDERS: ATTEND Surgery | DX: L59.8 Other specified disorders of the skin and subcutaneous tissue related to radiation (principal); E10.628 Type 1 diabetes mellitus with other skin complications; T86.828 Other complications of skin graft (allograft) (autograft); M87.88 Other osteonecrosis, other site; E07.89 Other specified disorders of thyroid; Z90.11 Acquired absence of right breast and nipple; Y84.2 Radiological procedure and radiotherapy as the cause of abnormal reaction of the patient, or of later complication, without mention of misadventure at the time of the procedure; Y83.2 Surgical operation with anastomosis, bypass or graft as the cause of abnormal reaction of the patient, or of later complication, without mention of misadventure at the time of the procedure ==

== ENCOUNTER → 2020-08-31 | Outpatient (CLI) | payer BC | LOC: M.WC 07:56 | PROVIDERS: ATTEND Emergency Medicine Undersea and Hyperbaric Medicine | DX: L59.8 Other specified disorders of the skin and subcutaneous tissue related to radiation (principal); E10.628 Type 1 diabetes mellitus with other skin complications; T86.828 Other complications of skin graft (allograft) (autograft); M87.88 Other osteonecrosis, other site; E07.89 Other specified disorders of thyroid; Z85.3 Personal history of malignant neoplasm of breast; Z90.11 Acquired absence of right breast and nipple; Y84.2 Radiological procedure and radiotherapy as the cause of abnormal reaction of the patient, or of later complication, without mention of misadventure at the time of the procedure; Y83.2 Surgical operation with anastomosis, bypass or graft as the cause of abnormal reaction of the patient, or of later complication, without mention of misadventure at the time of the procedure ==

== ENCOUNTER → 2020-09-01 | Outpatient (CLI) | payer BC | LOC: M.WC 07:58 | PROVIDERS: ATTEND Surgery | DX: L59.8 Other specified disorders of the skin and subcutaneous tissue related to radiation (principal); E10.628 Type 1 diabetes mellitus with other skin complications; T86.828 Other complications of skin graft (allograft) (autograft); M87.88 Other osteonecrosis, other site; E07.89 Other specified disorders of thyroid; Z85.3 Personal history of malignant neoplasm of breast; Y84.2 Radiological procedure and radiotherapy as the cause of abnormal reaction of the patient, or of later complication, without mention of misadventure at the time of the procedure; Y83.2 Surgical operation with anastomosis, bypass or graft as the cause of abnormal reaction of the patient, or of later complication, without mention of misadventure at the time of the procedure ==

== ENCOUNTER → 2020-09-02 | Outpatient (CLI) | payer BC | LOC: M.WC 08:30 | PROVIDERS: ATTEND Family Medicine | DX: L59.8 Other specified disorders of the skin and subcutaneous tissue related to radiation (principal); E10.628 Type 1 diabetes mellitus with other skin complications; T86.828 Other complications of skin graft (allograft) (autograft); M87.88 Other osteonecrosis, other site; E07.89 Other specified disorders of thyroid; Z85.3 Personal history of malignant neoplasm of breast; Y84.2 Radiological procedure and radiotherapy as the cause of abnormal reaction of the patient, or of later complication, without mention of misadventure at the time of the procedure; Y83.2 Surgical operation with anastomosis, bypass or graft as the cause of abnormal reaction of the patient, or of later complication, without mention of misadventure at the time of the procedure ==

== ENCOUNTER → 2020-09-15 | Outpatient (CLI) | payer BC | LOC: M.WC 08:00 | PROVIDERS: ATTEND Surgery | DX: L59.8 Other specified disorders of the skin and subcutaneous tissue related to radiation (principal); E10.628 Type 1 diabetes mellitus with other skin complications; T86.828 Other complications of skin graft (allograft) (autograft); M87.88 Other osteonecrosis, other site; E07.89 Other specified disorders of thyroid; Z85.3 Personal history of malignant neoplasm of breast; Z79.4 Long term (current) use of insulin; Z79.82 Long term (current) use of aspirin; Y84.2 Radiological procedure and radiotherapy as the cause of abnormal reaction of the patient, or of later complication, without mention of misadventure at the time of the procedure; Y83.2 Surgical operation with anastomosis, bypass or graft as the cause of abnormal reaction of the patient, or of later complication, without mention of misadventure at the time of the procedure ==

== ENCOUNTER → 2020-09-20 | Outpatient (CLI) | payer BC | LOC: M.WC 08:10 | PROVIDERS: ATTEND Surgery | DX: L59.8 Other specified disorders of the skin and subcutaneous tissue related to radiation (principal); E10.628 Type 1 diabetes mellitus with other skin complications; T86.828 Other complications of skin graft (allograft) (autograft); M87.88 Other osteonecrosis, other site; E07.89 Other specified disorders of thyroid; Z85.3 Personal history of malignant neoplasm of breast; Z79.4 Long term (current) use of insulin; Z79.82 Long term (current) use of aspirin; Y83.2 Surgical operation with anastomosis, bypass or graft as the cause of abnormal reaction of the patient, or of later complication, without mention of misadventure at the time of the procedure; Y84.2 Radiological procedure and radiotherapy as the cause of abnormal reaction of the patient, or of later complication, without mention of misadventure at the time of the procedure ==

== ENCOUNTER → 2020-09-21 | Outpatient (CLI) | payer BC | LOC: M.WC 07:34 | PROVIDERS: ATTEND Emergency Medicine Undersea and Hyperbaric Medicine | DX: L59.8 Other specified disorders of the skin and subcutaneous tissue related to radiation (principal); E10.628 Type 1 diabetes mellitus with other skin complications; T86.828 Other complications of skin graft (allograft) (autograft); M87.88 Other osteonecrosis, other site; E07.89 Other specified disorders of thyroid; Z85.3 Personal history of malignant neoplasm of breast; Z79.4 Long term (current) use of insulin; Z79.82 Long term (current) use of aspirin; Y83.2 Surgical operation with anastomosis, bypass or graft as the cause of abnormal reaction of the patient, or of later complication, without mention of misadventure at the time of the procedure; Y84.2 Radiological procedure and radiotherapy as the cause of abnormal reaction of the patient, or of later complication, without mention of misadventure at the time of the procedure ==

== ENCOUNTER → 2020-09-22 | Outpatient (CLI) | payer BC | LOC: M.WC 07:27 | PROVIDERS: ATTEND Surgery | DX: L59.8 Other specified disorders of the skin and subcutaneous tissue related to radiation (principal); E10.628 Type 1 diabetes mellitus with other skin complications; T86.828 Other complications of skin graft (allograft) (autograft); M87.88 Other osteonecrosis, other site; E07.89 Other specified disorders of thyroid; Z85.3 Personal history of malignant neoplasm of breast; Z79.4 Long term (current) use of insulin; Z79.82 Long term (current) use of aspirin; Y83.2 Surgical operation with anastomosis, bypass or graft as the cause of abnormal reaction of the patient, or of later complication, without mention of misadventure at the time of the procedure; Y84.2 Radiological procedure and radiotherapy as the cause of abnormal reaction of the patient, or of later complication, without mention of misadventure at the time of the procedure ==

== ENCOUNTER → 2020-09-23 | Outpatient (CLI) | payer BC | LOC: M.WC 07:29 | PROVIDERS: ATTEND Family Medicine | DX: L59.8 Other specified disorders of the skin and subcutaneous tissue related to radiation (principal); E10.628 Type 1 diabetes mellitus with other skin complications; T86.828 Other complications of skin graft (allograft) (autograft); M87.88 Other osteonecrosis, other site; E07.89 Other specified disorders of thyroid; Z85.3 Personal history of malignant neoplasm of breast; Z79.4 Long term (current) use of insulin; Z79.82 Long term (current) use of aspirin; Y83.2 Surgical operation with anastomosis, bypass or graft as the cause of abnormal reaction of the patient, or of later complication, without mention of misadventure at the time of the procedure; Y84.2 Radiological procedure and radiotherapy as the cause of abnormal reaction of the patient, or of later complication, without mention of misadventure at the time of the procedure ==

== ENCOUNTER → 2020-09-24 | Outpatient (CLI) | payer BC | LOC: M.WC 07:41 | PROVIDERS: ATTEND Family Medicine | DX: L59.8 Other specified disorders of the skin and subcutaneous tissue related to radiation (principal); M87.88 Other osteonecrosis, other site; E10.628 Type 1 diabetes mellitus with other skin complications; T86.828 Other complications of skin graft (allograft) (autograft); Z85.3 Personal history of malignant neoplasm of breast; Z86.14 Personal history of Methicillin resistant Staphylococcus aureus infection; Z90.11 Acquired absence of right breast and nipple; Y83.2 Surgical operation with anastomosis, bypass or graft as the cause of abnormal reaction of the patient, or of later complication, without mention of misadventure at the time of the procedure; Y84.2 Radiological procedure and radiotherapy as the cause of abnormal reaction of the patient, or of later complication, without mention of misadventure at the time of the procedure ==

== ENCOUNTER → 2020-09-27 | Outpatient (CLI) | payer BC | LOC: M.WC 07:51 | PROVIDERS: ATTEND Surgery | DX: L59.8 Other specified disorders of the skin and subcutaneous tissue related to radiation (principal); M87.88 Other osteonecrosis, other site; E10.628 Type 1 diabetes mellitus with other skin complications; T86.828 Other complications of skin graft (allograft) (autograft); E07.89 Other specified disorders of thyroid; Z85.3 Personal history of malignant neoplasm of breast; Y83.2 Surgical operation with anastomosis, bypass or graft as the cause of abnormal reaction of the patient, or of later complication, without mention of misadventure at the time of the procedure; Y84.2 Radiological procedure and radiotherapy as the cause of abnormal reaction of the patient, or of later complication, without mention of misadventure at the time of the procedure ==

== ENCOUNTER → 2020-09-28 | Outpatient (CLI) | payer BC | LOC: M.WC 07:41 | PROVIDERS: ATTEND Emergency Medicine Undersea and Hyperbaric Medicine | DX: L59.8 Other specified disorders of the skin and subcutaneous tissue related to radiation (principal); M87.88 Other osteonecrosis, other site; E10.628 Type 1 diabetes mellitus with other skin complications; T86.828 Other complications of skin graft (allograft) (autograft); E07.89 Other specified disorders of thyroid; Z85.3 Personal history of malignant neoplasm of breast; Y83.2 Surgical operation with anastomosis, bypass or graft as the cause of abnormal reaction of the patient, or of later complication, without mention of misadventure at the time of the procedure; Y84.2 Radiological procedure and radiotherapy as the cause of abnormal reaction of the patient, or of later complication, without mention of misadventure at the time of the procedure ==

== ENCOUNTER → 2020-09-29 | Outpatient (CLI) | payer BC | LOC: M.WC 07:36 | PROVIDERS: ATTEND Surgery | DX: L59.8 Other specified disorders of the skin and subcutaneous tissue related to radiation (principal); T86.828 Other complications of skin graft (allograft) (autograft); E10.628 Type 1 diabetes mellitus with other skin complications; E07.89 Other specified disorders of thyroid; M87.88 Other osteonecrosis, other site; Z85.3 Personal history of malignant neoplasm of breast; Y83.2 Surgical operation with anastomosis, bypass or graft as the cause of abnormal reaction of the patient, or of later complication, without mention of misadventure at the time of the procedure; Y84.2 Radiological procedure and radiotherapy as the cause of abnormal reaction of the patient, or of later complication, without mention of misadventure at the time of the procedure ==

== ENCOUNTER → 2020-09-30 | Outpatient (CLI) | payer BC | LOC: M.WC 07:41 | PROVIDERS: ATTEND Family Medicine | DX: L59.8 Other specified disorders of the skin and subcutaneous tissue related to radiation (principal); M87.88 Other osteonecrosis, other site; E10.628 Type 1 diabetes mellitus with other skin complications; T86.828 Other complications of skin graft (allograft) (autograft); E07.89 Other specified disorders of thyroid; Z85.3 Personal history of malignant neoplasm of breast; Y83.2 Surgical operation with anastomosis, bypass or graft as the cause of abnormal reaction of the patient, or of later complication, without mention of misadventure at the time of the procedure; Y84.2 Radiological procedure and radiotherapy as the cause of abnormal reaction of the patient, or of later complication, without mention of misadventure at the time of the procedure ==

== ENCOUNTER → 2020-10-01 | Outpatient (CLI) | payer BC | LOC: M.WC 07:41 | PROVIDERS: ATTEND Family Medicine | DX: L59.8 Other specified disorders of the skin and subcutaneous tissue related to radiation (principal); E10.628 Type 1 diabetes mellitus with other skin complications; T86.828 Other complications of skin graft (allograft) (autograft); M87.88 Other osteonecrosis, other site; Z90.11 Acquired absence of right breast and nipple; Y84.2 Radiological procedure and radiotherapy as the cause of abnormal reaction of the patient, or of later complication, without mention of misadventure at the time of the procedure; Y83.2 Surgical operation with anastomosis, bypass or graft as the cause of abnormal reaction of the patient, or of later complication, without mention of misadventure at the time of the procedure ==

== ENCOUNTER → 2020-10-04 | Outpatient (CLI) | payer BC | LOC: M.WC 07:40 | PROVIDERS: ATTEND Surgery | DX: L59.8 Other specified disorders of the skin and subcutaneous tissue related to radiation (principal); E10.628 Type 1 diabetes mellitus with other skin complications; T86.828 Other complications of skin graft (allograft) (autograft); M87.88 Other osteonecrosis, other site; E07.89 Other specified disorders of thyroid; Z85.3 Personal history of malignant neoplasm of breast; Y84.2 Radiological procedure and radiotherapy as the cause of abnormal reaction of the patient, or of later complication, without mention of misadventure at the time of the procedure; Y83.2 Surgical operation with anastomosis, bypass or graft as the cause of abnormal reaction of the patient, or of later complication, without mention of misadventure at the time of the procedure ==

== ENCOUNTER → 2020-10-06 | Outpatient (CLI) | payer BC | LOC: M.WC 08:30 | PROVIDERS: ATTEND Surgery | DX: T86.828 Other complications of skin graft (allograft) (autograft) (principal); L59.8 Other specified disorders of the skin and subcutaneous tissue related to radiation; E10.628 Type 1 diabetes mellitus with other skin complications; E07.89 Other specified disorders of thyroid; Z79.4 Long term (current) use of insulin; Z85.3 Personal history of malignant neoplasm of breast; Z79.82 Long term (current) use of aspirin; Y84.2 Radiological procedure and radiotherapy as the cause of abnormal reaction of the patient, or of later complication, without mention of misadventure at the time of the procedure; Y83.2 Surgical operation with anastomosis, bypass or graft as the cause of abnormal reaction of the patient, or of later complication, without mention of misadventure at the time of the procedure ==

== ENCOUNTER → 2020-10-20 | Outpatient (CLI) | payer BC | LOC: M.WC 08:22 | PROVIDERS: ATTEND Surgery | DX: T86.828 Other complications of skin graft (allograft) (autograft) (principal); L59.8 Other specified disorders of the skin and subcutaneous tissue related to radiation; E10.628 Type 1 diabetes mellitus with other skin complications; E07.89 Other specified disorders of thyroid; Z79.4 Long term (current) use of insulin; Z85.3 Personal history of malignant neoplasm of breast; Z79.82 Long term (current) use of aspirin; Y84.2 Radiological procedure and radiotherapy as the cause of abnormal reaction of the patient, or of later complication, without mention of misadventure at the time of the procedure; Y83.2 Surgical operation with anastomosis, bypass or graft as the cause of abnormal reaction of the patient, or of later complication, without mention of misadventure at the time of the procedure ==

== ENCOUNTER → 2020-10-27 | Outpatient (CLI) | payer BC | LOC: M.WC 09:41 | PROVIDERS: ATTEND Emergency Medicine Undersea and Hyperbaric Medicine | DX: T86.828 Other complications of skin graft (allograft) (autograft) (principal); L59.8 Other specified disorders of the skin and subcutaneous tissue related to radiation; E10.628 Type 1 diabetes mellitus with other skin complications; E07.89 Other specified disorders of thyroid; Z79.4 Long term (current) use of insulin; Z85.3 Personal history of malignant neoplasm of breast; Z79.82 Long term (current) use of aspirin; Y84.2 Radiological procedure and radiotherapy as the cause of abnormal reaction of the patient, or of later complication, without mention of misadventure at the time of the procedure; Y83.2 Surgical operation with anastomosis, bypass or graft as the cause of abnormal reaction of the patient, or of later complication, without mention of misadventure at the time of the procedure ==

== ENCOUNTER → 2020-11-10 | Outpatient (CLI) | payer BC | LOC: M.WC 09:51 | PROVIDERS: ATTEND Surgery | DX: T86.828 Other complications of skin graft (allograft) (autograft) (principal); L59.8 Other specified disorders of the skin and subcutaneous tissue related to radiation; E10.628 Type 1 diabetes mellitus with other skin complications; E07.89 Other specified disorders of thyroid; Z79.4 Long term (current) use of insulin; Z85.3 Personal history of malignant neoplasm of breast; Z79.82 Long term (current) use of aspirin; Y84.2 Radiological procedure and radiotherapy as the cause of abnormal reaction of the patient, or of later complication, without mention of misadventure at the time of the procedure; Y83.2 Surgical operation with anastomosis, bypass or graft as the cause of abnormal reaction of the patient, or of later complication, without mention of misadventure at the time of the procedure ==

== ENCOUNTER → 2020-12-08 | Outpatient (CLI) | payer BC | LOC: M.WC 12-01 10:00 | PROVIDERS: ATTEND Surgery | DX: T86.828 Other complications of skin graft (allograft) (autograft) (principal); L59.8 Other specified disorders of the skin and subcutaneous tissue related to radiation; E10.628 Type 1 diabetes mellitus with other skin complications; E07.89 Other specified disorders of thyroid; Z79.4 Long term (current) use of insulin; Z85.3 Personal history of malignant neoplasm of breast; Z79.82 Long term (current) use of aspirin; Y84.2 Radiological procedure and radiotherapy as the cause of abnormal reaction of the patient, or of later complication, without mention of misadventure at the time of the procedure; Y83.2 Surgical operation with anastomosis, bypass or graft as the cause of abnormal reaction of the patient, or of later complication, without mention of misadventure at the time of the procedure ==

== ENCOUNTER → 2021-01-19 | Outpatient (CLI) | payer BC | LOC: M.WC 10:00 | PROVIDERS: ATTEND Surgery | DX: T86.828 Other complications of skin graft (allograft) (autograft) (principal); L59.8 Other specified disorders of the skin and subcutaneous tissue related to radiation; E10.628 Type 1 diabetes mellitus with other skin complications; E07.89 Other specified disorders of thyroid; Z79.4 Long term (current) use of insulin; Z85.3 Personal history of malignant neoplasm of breast; Z79.82 Long term (current) use of aspirin; Y84.2 Radiological procedure and radiotherapy as the cause of abnormal reaction of the patient, or of later complication, without mention of misadventure at the time of the procedure; Y83.2 Surgical operation with anastomosis, bypass or graft as the cause of abnormal reaction of the patient, or of later complication, without mention of misadventure at the time of the procedure ==